=== PATIENT | female | born 1990 | race African-American/Black ===

== ENCOUNTER 2019-01-08 23:39 | Emergency (ER) | payer MEDICARE ==
[~2019-01-08] VITALS: Ht 157.4 cm; Wt 57.6 kg
[2019-01-09 00:12] LABS: BILIRUBIN NEGATIVE (NEGATIVE); BLOOD TRACE-LYSED (NEGATIVE); CLARITY CLEAR (CLEAR); COLOR YELLOW (YELLOW); GLUCOSE NEGATIVE (NEGATIVE); KETONE NEGATIVE (NEGATIVE); LEUKO ESTERASE 1+ (NEGATIVE); NITRITE NEGATIVE (NEGATIVE)
[2019-01-09 00:21] LABS: BACTERIA 1+; WBC 51-100 wbc/hpf (0-5)
[2019-01-09 01:28] LABS: ALBUMIN 3.3 gm/dl (3.1-4.5); ALKALINE PHOSPHATASE 58 U/L (45-117); CHLORIDE 104 mmol/L (98-107); LIPASE 61 U/L (73-393); POTASSIUM 3.7 mmol/L (3.5-5.1); SGPT/ALT 73 U/L (12-78); SODIUM 137 mmol/L (136-145); TOTAL PROTEIN 7.2 gm/dL (6.4-8.2)
[2019-01-09 01:31] LABS: BASO # 0.1 10*3/uL (0.0-0.1); BASO % 0.3 % (0.0-1.0); EOS # 0.1 10*3/uL (0.0-0.4); EOS % 0.4 % (1.0-4.0); HEMATOCRIT 36.6 % (37.0-47.0); HEMOGLOBIN 12.2 g/dl (12.0-16.0); LYMPH # 2.5 10*3/uL (1.3-4.4); LYMPH % 14.7 % (27.0-41.0); MEAN CELL VOLUME 92.4 fl (81.0-99.0); MEAN CORPUSCULAR HGB 30.8 pg (27.0-31.0); MEAN CORPUSCULAR HGB CONC 33.3 g/dl (33.0-37.0); MEAN PLATELET VOLUME 10.9 fl (9.6-12.3); MONO # 0.8 10*3/uL (0.1-1.0); MONO % 4.7 % (3.0-9.0); NEUT # 13.3 10*3/uL (2.3-7.9); NEUT % 79.3 % (47.0-73.0); PLATELET COUNT AUTOMATED 354 10*3/uL (130-400); RED BLOOD COUNT 3.96 10*6/uL (4.10-5.10); RED CELL DISTRI WIDTH 12.4 % (0-14.5); WHITE BLOOD COUNT 16.8 10*3/uL (4.8-10.8)
[2019-01-09 01:33] LABS: BUN 9 mg/dl (7-24); SGOT/AST 39 IU/L (3-35)
[2019-01-09 01:38] LABS: ETHYL ALCOHOL < 3.0 mg/dl (<3)
[2019-01-09] MEDS ORDERED: CEPHALEXIN500 M1 PO (03:24)
== END 2019-01-09 04:20 | disposition home or self-care (01) ==
LOC: ED 23:39
PROVIDERS: Emergency Medicine
DX: O23.42 Unspecified infection of urinary tract in pregnancy, second trimester (principal); O26.892 Other specified pregnancy related conditions, second trimester; R11.10 Vomiting, unspecified; Z3A.18 18 weeks gestation of pregnancy; Z88.0 Allergy status to penicillin; Z88.5 Allergy status to narcotic agent

== ENCOUNTER 2019-04-24 22:24 | Emergency (ER) | payer MEDICARE ==
[~2019-04-24] VITALS: Ht 157.4 cm; Wt 68.0 kg
[~2019-04-24 22:24] MED LIST: CEPHALEXIN500 M1 PO
== END 2019-04-24 23:43 | disposition short-term general hospital (02) ==
LOC: ED 22:24
DX: O60.03 Preterm labor without delivery, third trimester (principal); Z3A.32 32 weeks gestation of pregnancy; Z88.0 Allergy status to penicillin; Z88.8 Allergy status to other drugs, medicaments and biological substances

== ENCOUNTER 2019-05-02 19:15 | Emergency (ER) | payer MEDICARE ==
[~2019-05-02] VITALS: Ht 154.9 cm; Wt 63.5 kg
== END 2019-05-02 19:55 | disposition home or self-care (01) ==
LOC: ED 19:15
DX: O63.0 Prolonged first stage (of labor) (principal); O34.219 Maternal care for unspecified type scar from previous cesarean delivery; O99.333 Smoking (tobacco) complicating pregnancy, third trimester; Z3A.32 32 weeks gestation of pregnancy; Z88.0 Allergy status to penicillin; Z88.5 Allergy status to narcotic agent